=== PATIENT | female | born 1995 ===

== ENCOUNTER → 2021-06-23 | Outpatient (CLI) | payer OTHER | LOC: ZCOL.LAB 14:44 | DX: K04.7 Periapical abscess without sinus (principal) ==

== ENCOUNTER 2024-08-02 09:46 | Emergency (ER) | payer OTHER ==
[~2024-08-02] VITALS: Ht 160 cm; Wt 95.0 kg
[~2024-08-02 09:46] MED LIST: PHENERGAN25 MG RC
[2024-08-02 09:59] VITALS: TEMP 98.7
[2024-08-02] MEDS ORDERED: Ketorolac 30 MG/ML VIAL IV ONE (10:45)
[2024-08-02] MEDS ORDERED: NS 1,000 ML IV ONE (10:45)
[2024-08-02] MEDS ORDERED: droPERidol 2.5 MG/ML 2 ML VIAL IV ONE (10:45)
[2024-08-02 10:51] LABS: BASO % 0.3 % (0.0-2.0); EOS # 0.1 K/mm3 (0.0-0.7); EOS % 0.8 % (0.0-4.0); GRAN # 8.5 K/mm3 (1.4-6.5); GRAN % 70.2 % (42.2-75.2); HEMATOCRIT 40.4 % (37.0-47.0); LYMPH # 2.6 K/mm3 (1.2-3.4); LYMPH % 21.2 % (20.0-51.0); MEAN CELL VOLUME 82 fl (80.0-100.0); MEAN CORPUSCULAR HEMOGLOBIN 28 pg (27-31); MEAN CORPUSCULAR HGB CONC 35 g/dl (33.0-37.0); MEAN PLATELET VOLUME 10.3 fl (7.4-10.4); MONO # 0.9 K/mm3 (0.1-0.6); MONO % 7.2 % (1.7-9.3); PLATELET COUNT 290 K/mm3 (130-400); RED BLOOD COUNT 4.95 M/mm3 (4.10-5.30); REDCELL DISTRIBUTION WIDTH-CV 12.9 % (11.5-14.5)
[2024-08-02 11:12] LABS: ALBUMIN 4.4 g/dL (3.5-5.0); BILIRUBIN,TOTAL 0.7 mg/dL (0.2-1.2); CALCIUM 9.8 mg/dL (8.4-10.2); CREATININE, serum 0.78 mg/dL (0.57-1.11); POTASSIUM 3.6 mEq/L (3.5-4.5); TOTAL PROTEIN 7.8 g/dl (6.2-8.1)
[2024-08-02] MEDS ORDERED: Ondansetron 4 MG/2 ML VIAL IV ONE ×2 (11:30→12:45)
[2024-08-02] MEDS ORDERED: Iohexol 300 - 100 ML VIAL IV ONE (11:48)
[2024-08-02] MEDS ORDERED: NS 100 ML IV SCH (11:48)
[2024-08-02 12:37] LABS: COLLECTION METHOD CLEAN CATCH
[2024-08-02 12:43] LABS: PH 6.5 (5.0-8.5); URINE APPEARANCE CLEAR (CLEAR/HAZY); URINE BLOOD NEGATIVE (NEGATIVE); URINE COLOR YELLOW (YELLOW); URINE GLUCOSE NEGATIVE (NEGATIVE); URINE KETONE 3+ (NEGATIVE); URINE NITRATE NEGATIVE (NEGATIVE); URINE PROTEIN(semi-quant) NEGATIVE (NEGATIVE)
[2024-08-02] MEDS ORDERED: ZOFRAN ODT4 MG PO (13:06)
[2024-08-02 13:10] VITALS: BP 121/89; PULSE 72
== END 2024-08-02 13:30 | disposition home or self-care (01) ==
LOC: COL.ER 09:46
PROVIDERS: Physician Assistant
DX: R10.12 Left upper quadrant pain (principal); G89.29 Other chronic pain
CPT/HCPCS: J1790; J1885; J2405; J7030; Q9967